=== PATIENT | male | born 1980 | race Asian ===

== ENCOUNTER 2023-12-14 03:02 | Emergency (ER) | payer OTHER ==
[~2023-12-14] VITALS: Ht 172.7 cm; Wt 86.1 kg
[2023-12-14 03:19] VITALS: O2SAT 98
[2023-12-14] MEDS: FLUORESCEIN SODIUM 1MG/STRIP LEFTEYE ONE (05:00)
[2023-12-14] MEDS: TETRACAINE 0.5% OPHTH DROPS 4ML LEFTEYE ONE (05:00)
[2023-12-14] MEDS ORDERED: OCUFLX LEFTEYE (05:28)
[2023-12-14] MEDS ORDERED: NAPR-681 MT (05:28)
[2023-12-14 05:46] VITALS: BP 138/62; PULSE 88; RESP 16; TEMP 98.5
== END 2023-12-14 05:46 | disposition home or self-care (01) ==
LOC: ER 03:02
DX: S00.212A Abrasion of left eyelid and periocular area, initial encounter (principal); X58.XXXA Exposure to other specified factors, initial encounter; Y93.89 Activity, other specified; Y92.89 Other specified places as the place of occurrence of the external cause; Y99.8 Other external cause status
CPT/HCPCS: 99283